=== PATIENT | female | born 1970 | race African-American/Black ===

== ENCOUNTER 2016-08-04 07:32 | Day surgery (SDC) | payer BC, OTHER ==
--- NOTE | ~2016-08-04 | EGD ---
EGD REPORT [facility] [address] [place] [address] NAME: WHITLEY AGGARWAL : 66 STATUS : [facility] PAT#: [id number] AGE: 46 ADM/REG DATE : 08/04/16 MR#: [id number] REPORT SERV DATE: 08/04/16 DICTATED BY: GINNA GONZALEZ. DATE: 08/04/16 REPORT STATUS : Draft TRANSCRIBED BY: [facility] DATE: 08/04/16 Endoscopy Center Patient Name: Whitley Aggarwal Date of : 1970 Attending MD: GINNA GONZALEZ MD Procedure Date No Time: 08/04/2016 Procedure: Upper GI endoscopy Indications: Dysphagia, Heartburn; Pantoprazole 40mg bid. Patient Profile: Informed consent was obtained from the patient by me prior to the procedure. Risks, benefits, and alternatives were discussed including the risk of bleeding, perforation, infection, reaction to medicine, missed lesion, and cardiopulmonary complications. Referring MD: DAVID SANTANA Medicines: Monitored Anesthesia Care Complications: No immediate complications. Procedure: Pre-Anesthesia Assessment: - ASA Grade Assessment: II - A patient with mild systemic disease. After obtaining informed consent, the endoscope was passed under direct vision. Throughout the procedure, the patient's blood pressure, pulse, and oxygen saturations were monitored continuously. The GIF [id number] was introduced through the mouth, and advanced to the second part of duodenum. The endoscope was withdrawn with careful examination all mucosal surfaces including retroflexion stomach. The upper GI endoscopy was accomplished without difficulty. The patient tolerated the procedure well. Findings: The first part of the duodenum and 2nd part of the duodenum were normal. Biopsies were taken with a cold forceps for histology. The cardia, gastric fundus and gastric antrum were normal. Diffuse mild inflammation was found in the gastric body. Biopsies were taken with a cold forceps for histology. The examined esophagus was normal. Biopsies were taken with a cold forceps for histology from mid and upper. 48F Savary dilation performed over guidewire held in antrum; minimal resistance to dilation; endoscopic visualization afterwards superficial mucosal break near UES. The esophagus and gastroesophageal junction were examined with white light. There was no visual evidence of Baig's esophagus. Impression: - Normal first part of the duodenum and 2nd part of the duodenum. Biopsied. EGD REPORT [facility] [id number] [place]. [address] NAME: WHITLEY AGGARWAL : [birth year] STATUS : [facility]#: [id number] AGE: 46 ADM/REG DATE : 08/04/16 MR#: [id number] REPORT SERV DATE: 08/04/16 DICTATED BY: GINNA GONZALEZ DATE: 08/04/16 REPORT STATUS : Draft TRANSCRIBED BY: [employer] [facility] DATE: 08/04/16 - Normal cardia, gastric fundus and antrum. - Gastritis. Biopsied. - Normal esophagus. Biopsied. Dilated. - There is no endoscopic evidence of Baig's esophagus. Recommendation: - Patient has a contact number available for emergencies. The signs and symptoms of potential delayed complications were discussed with the patient. Return to normal activities tomorrow. Written discharge instructions were provided to the patient. - Regular diet. - Continue present medications. - Await pathology results. - Schd 4hr GET re: early satiety, GERD. Procedure Code(s): --- Professional --- 45788, Esophagogastroduodenoscopy, flexible, transoral; with insertion of guide wire followed by passage of dilator(s) through esophagus over guide wire 24206, Esophagogastroduodenoscopy, flexible, transoral; with biopsy, single or multiple Diagnosis Code(s): --- Professional --- K29.70, Gastritis, unspecified, without bleeding R13.10, Dysphagia, unspecified R12, Heartburn CPT copyright 2013 [employer]. All rights reserved. The codes documented in this report are preliminary and upon auditing coder review may be revised to meet current compliance requirements. GINNA GONZALEZ MD 08/04/2016 10:04 AM This report has been signed electronically. Number of Addenda: 0 Note Initiated On: 08/04/2016 9:41 AM Scope Withdrawal Time 0 hours 0 minutes 0 seconds [id number] [id number]
[~2016-08-04 07:32] MED LIST: CALTRA600D PO; FENTANYL; LEVOTHYROXIN100 MCG PO; NORCO1 TA2 PO; PROTONIX PO; VITAMIN D31000 UNIT PO; ZANTAC150 MG PO
[2016-12-18] MEDS ORDERED: DURA25 TOP (09:26)
[2016-12-18] MEDS ORDERED: NEUR100 PO (09:27)
[2016-12-18] MEDS ORDERED: MAXIMUM D3 PO (09:28)
[2016-12-18] MEDS ORDERED: LEVOTHROID125 MCG PO (09:29)
== END 2016-08-04 23:59 | disposition home health service (06) ==
LOC: DMU 07:32
PROVIDERS: Internal Medicine Gastroenterology
PROC: 0D758ZZ Dilation of Esophagus, Via Natural or Artificial Opening Endoscopic (ICD-10-PCS; 2016-08-04)
PROC: 0DB98ZX Excision of Duodenum, Via Natural or Artificial Opening Endoscopic, Diagnostic (ICD-10-PCS; principal; 2016-08-04 10:00)
PROC: 0DB68ZX Excision of Stomach, Via Natural or Artificial Opening Endoscopic, Diagnostic (ICD-10-PCS; 2016-08-04 10:00)
DX: K29.70 Gastritis, unspecified, without bleeding (principal); E03.9 Hypothyroidism, unspecified; G47.33 Obstructive sleep apnea (adult) (pediatric); M19.90 Unspecified osteoarthritis, unspecified site; Z88.5 Allergy status to narcotic agent; Z99.81 Dependence on supplemental oxygen; Z87.891 Personal history of nicotine dependence; Z90.710 Acquired absence of both cervix and uterus
CPT/HCPCS: 88305; 88342; J2405